=== PATIENT | male | born 1945 | race Caucasian/White ===

== ENCOUNTER 2022-12-22 06:07 | Day surgery (SDC) | payer MEDICARE ==
[2022-12-22] VITALS (22 sets, daily range): BP systolic 124–177; BP diastolic 63–90; PULSE 60–83; RESP 10–22; TEMP 98.5; O2SAT 65–99
[~2022-12-22] VITALS: Ht 175.3 cm; Wt 70.7 kg
[~2022-12-22 06:07] MED LIST: ACET-1025 PO; ASPI-1265 PO; CALC250T2 PO; CETI10TA15 PO; CHOL100046 PO; CYAN50009 PO; FOLI0.4T14 PO; GLUC-95 PO; IBUP-2697; LOVA40TA2 PO; UBID200C37 PO; famotidine 20mg tablet PO ONE; oxymetazoline 15 ML nasal spray NS ONE; ringers solution, lacted 1,000 ML IV SCH; tranexamic acid inj. 1,000 MG in normal saline 100ml IV soln 90 ML IV ONE
[2022-12-22] MEDS ORDERED: tranexamic acid 100mg/ml inj. ONE (06:47)
[2022-12-22] MEDS ORDERED: LIDOcaine 1% w/EPI 1:100,000 inj. MDV 50 ML VIAL ONE (06:47)
[2022-12-22] MEDS ORDERED: mupirocin 2% ointment 22GM ONE (06:48)
[2022-12-22] MEDS ORDERED: cocaine 4% topical solution 4ml bottle ONE (06:48)
[2022-12-22] MEDS ORDERED: epiNEPHrine 1 mg/ml 30ml MDV ONE (06:48)
[2022-12-22] MEDS ORDERED: oxymetazoline 15 ML nasal spray NS ONE (06:48)
[2022-12-22] MEDS ORDERED: ROSU40TA PO (07:28)
[2022-12-22] MEDS ORDERED: midazolam 1 mg/ML 2ml injection ONE (07:45)
[2022-12-22] MEDS ORDERED: HYDROmorphone 1 mg/ml syringe ONE ×2 (07:45)
[2022-12-22] MEDS ORDERED: dexamethasone sod phosphate 4mg/ml inj. ONE (07:46)
[2022-12-22] MEDS ORDERED: ondansetron/PF 4mg/2ml inj ONE (07:46)
[2022-12-22] MEDS ORDERED: ringers solution, lacted 1,000 ML IV SCH (07:50)
[2022-12-22] MEDS ORDERED: fentaNYL/PF 50MCG/1 ML 2ML syringe IV PRN ×2 (07:50)
[2022-12-22] MEDS ORDERED: HYDROmorphone/PF 0.2 MG/ML SYRINGE IV PRN ×2 (07:50)
[2022-12-22] MEDS ORDERED: ondansetron/PF 4mg/2ml inj IV PRN (07:50)
[2022-12-22] MEDS ORDERED: proCHLORperazine 10 MG/2 ml inj IV PRN (07:50)
[2022-12-22] MEDS ORDERED: desflurane 240ml liquid inh. IH ONE (08:18)
[2022-12-22] MEDS ORDERED: ceFAZolin 1000mg inj ONE ×2 (08:29)
[2022-12-22] MEDS ORDERED: cefTAZidime 1gm inj ONE (09:21)
--- NOTE | 2022-12-22 09:50 | NUR ---
Received from OR via JO[facility], accompanied by Anesthesiologist and report given by DESEAN Anesthesiologist. PATIENT WAKING UP, DENIES PAIN, VSS, 20G PIV TO RIGHT FOREARM, BILATERAL COTTONOID DRESSING C/D/I. Addendum: 12/22/22 at 1229 by Jin He RN Amended: Links added.
[2022-12-22] MEDS: labetalol 20mg/4ml (5mg/ml) syringe IV PRN ×2 (09:58→10:06)
[2022-12-22] MEDS ORDERED: salt irrigation nasal spray 45 ML SPRAY NS PRN (10:00)
[2022-12-22] MEDS ORDERED: mupirocin 2% nasal ointment 1gm UD NS ONE (10:00)
[2022-12-22] MEDS: hydrALAZINE 20mg/ml inj. IV PRN ×2 (10:16→12:07)
--- NOTE | 2022-12-22 10:30 | NUR ---
PULLED BILATERAL COTTONOID DRESSING. NO S/S OF BLEEDING. PATIENT TOLERATED PROCEDURE WELL. NO S/S OF DISTRESS. WILL KEEP MONITORING. Addendum: 12/22/22 at 1229 by Jin He RN Amended: Links added.
--- NOTE | 2022-12-22 12:40 | NUR ---
ALL DISCHARGE CRITERIA HAS BEEN MET. VSS, PAIN AT A TOLERABLE LEVEL. MD ALLOWED PATIENT TO GO HOME BEFORE VOIDING. PATIENT INSTRUCTED TO GO ER IF UNABLE TO VOID AT HOME. ABLE TO SAFELY AMBULATE AND TRANSFER SELF. IV TAKEN OUT WITHOUT ANY COMPLICATIONS. ALL DISCHARGE INSTRUCTIONS COVERED WITH PATIENT AND ALL QUESTIONS ANSWERED. PATIENT TAKEN OUT VIA WHEELCHAIR WITH ALL BELONGINGS TO PERSONAL VEHICLE WHERE FAMILY DROVE PATIENT HOME. Addendum: 12/22/22 at 1243 by Jin He RN Amended: Links added.
== END 2022-12-22 12:40 | disposition home or self-care (01) ==
LOC: PAS 06:07
PROVIDERS: ATTEND Otolaryngology
DX: J34.3 Hypertrophy of nasal turbinates (principal); J34.2 Deviated nasal septum; J32.8 Other chronic sinusitis; J33.8 Other polyp of sinus; M19.90 Unspecified osteoarthritis, unspecified site; K21.9 Gastro-esophageal reflux disease without esophagitis; G44.009 Cluster headache syndrome, unspecified, not intractable; E78.5 Hyperlipidemia, unspecified; Z88.5 Allergy status to narcotic agent; Z87.891 Personal history of nicotine dependence; Z79.899 Other long term (current) drug therapy; Z85.828 Personal history of other malignant neoplasm of skin; Z85.51 Personal history of malignant neoplasm of bladder; Z85.528 Personal history of other malignant neoplasm of kidney; Z90.5 Acquired absence of kidney
CPT/HCPCS: 30140; 30520; 31254; 31267; 61782; 82948; 93005; A6402; J0171; J0360; J0690; J0713; J0780; J1100; J1170; J2250; J2405; J3490; J7030; J7050; J7120; Z7506; Z7508; Z7512; A4618; A7000